=== PATIENT | male | born 1945 | race Caucasian/White ===

== ENCOUNTER 2019-01-23 15:15 | Inpatient (IN) | payer MEDICARE ==
[~2019-01-23] VITALS: Ht 182.9 cm; Wt 88.9 kg
[~2019-01-23 15:15] MED LIST: BACITO TP; CALCA400CH PO; HYDACE5 PO; METO25ER PO; Norco 5-325 Ta1 EACH PO; OXYACE5T PO; PANT40 PO; PRAM.5; PRAM.5 PO; RABE20 PO; RXOXYACE PO; TRIA80TC
[2019-01-23 16:08] LABS: BASOPHILS ABSOLUTE AUTO 0.06 K/mm3 (0.00-0.23); BASOPHILS PERCENT AUTO 0 % (0-2); EOSINOPHILS PERCENT AUTO 0 % (0-6); Hematocrit 39.4 % (37.0-53.0); Hemoglobin 13.3 g/dL (13.5-17.5); IMMATURE GRAN ABSOLUTE AUTO 0.44 K/mm3 (0.00-0.10); IMMATURE GRAN PERCENT AUTO 1 % (0-1); LYMPHOCYTES ABSOLUTE AUTO 0.77 K/mm3 (0.84-5.20); LYMPHOCYTES PERCENT AUTO 3 % (21-46); MONOCYTES ABSOLUTE AUTO 2.53 K/mm3 (0.16-1.47); MONOCYTES PERCENT AUTO 8 % (4-13); Mean Corpuscular HGB 31.4 pg (26.0-34.0); Mean Corpuscular HGB Conc 33.8 g/dL (31.5-36.5); Mean Platelet Volume 10.6 fL (9.1-12.4); NEUTROPHILS ABSOLUTE AUTO 26.71 K/mm3 (1.96-9.15); NEUTROPHILS PERCENT AUTO 88 % (41-73); Platelet Count 428 K/mm3 (150-400); RDW Coefficient Variation 13.8 % (11.7-14.2); RDW Standard Deviation 46.9 fL (35.1-46.3); Red Blood Cell Count 4.23 M/mm3 (4.30-5.90); White Blood Cell Count 30.51 K/mm3 (4.00-11.30)
[2019-01-23 16:18] LABS: Alanine Aminotransfer (ALT/SGP 52 U/L (12-78); Albumin, Blood 3.1 g/dL (3.4-5.0); Albumin/Globulin Ratio 0.6 (0.8-1.8); Alk Phos 191 U/L (50-136); Anion Gap 8 mmol/L (6-16); Aspartate Aminotrans (AST/SGOT 22 U/L (12-37); Bilirubin, Total 0.5 mg/dL (0.1-1.0); Blood Urea Nitrogen 12 mg/dL (8-24); CO2, Blood 25 mmol/L (21-32); Calcium, Blood 9.1 mg/dL (8.5-10.1); Chloride, Blood 101 mmol/L (98-108); Creatinine, Blood 0.67 mg/dL (0.60-1.20); Globulin, Blood 4.8 g/dL (2.2-4.0); Glomerular Filtration Rate >60 (60-); Glucose, Blood 134 mg/dL (70-99); Mean Corpuscular Volume 93 fL (80-100); Potassium, Blood 3.9 mmol/L (3.5-5.5); Sodium, Blood 134 mmol/L (136-145); Total Protein, Blood 7.9 g/dL (6.4-8.2)
[2019-01-23 16:22] LABS: Source, Urine Catheter
[2019-01-23 16:49] LABS: Bilirubin, Urine Neg (Neg); Blood, Urine 5+ (Neg); Glucose Qualitative, Urine Neg (Neg); Ketones, Urine 1+ (Neg); Leukocyte Esterase, Urine 3+ (Neg); Nitrite, Urine Pos (Neg); Protein, Urine 3+ (Neg); Urobilinogen, Urine NORM (Normal)
[2019-01-23 17:03] LABS: Appearance, Urine Cloudy (Clear); Color, Urine Yellow (P-Yellow)
[2019-01-23 17:05] LABS: Bacteria Mod /hpf; Squamous Epithelial Cells Rare /hpf (Few); White Blood Cells, Urine TNTC /hpf (0-5)
[2019-01-23] MEDS ORDERED: Albuterol2.5 MG/0.5 INH (18:34)
[2019-01-23] MEDS ORDERED: POTCHL20ER PO (18:35)
[2019-01-23] MEDS ORDERED: LEVE500 PO (18:35)
[2019-01-23] MEDS ORDERED: SODCHL1 PO (18:36)
[2019-01-23] MEDS ORDERED: METO25ER PO (18:36)
[2019-01-23] MEDS ORDERED: Ocuflox5 ML BOTHEYES (18:38)
[2019-01-23] MEDS ORDERED: ACULAR5 ML BOTHEYES (18:39)
[2019-01-23] MEDS ORDERED: PRAM.5 PO (18:39)
[2019-01-23] MEDS ORDERED: TAMS.4ER PO (18:40)
[2019-01-23] MEDS ORDERED: PRED FORTE5 ML BOTHEYES (18:40)
[2019-01-23 20:27] LABS: PCO2 Arterial 34.2 mmHg (35-45); pH Blood Arterial 7.47 (7.35-7.45)
--- NOTE | 2019-01-23 21:45 | NUR ---
PT TO ICU 8 FROM ED. PT PRESENTED WITH AMS, FEBRILE, AND TACHY. PER ED NURSE, PT HAS BEEN MINIMALLY RESPONSIVE TO VERBAL STIMULI BUT HAD ONE SHORT PERIOD OF SITTING UP AND SPEAKING CLEARLY. UPON ARRIVAL PT IS RESPONSIVE TO VERBAL STIMULUS BUT IS CONFUSED ON LOCATION BELIEVING HE IS AT [facility] (HE HAD A RECENT STAY FROM 12/28-01/21 D/T [facility]), PT KNEW THAT IS WAS January AND WAS ABLE TO ANSWER MOST ADMISSION QUESTIONS REGARDING MEDICAL HISTORY AND ALLERGIES BUT THEN QUICKLY FELL INTO A DEEP "SLEEP" STATE WHERE PT NEEDED PAINFUL STIMULI (STERNAL RUB) TO AROUSE. PT WOULD QUICKLY FALL BACK TO SLEEP FOLLOWING NOXIOUS STIMULI. PT'S VSS ON ADMIT. TEMP 100.5. SEE ADMISSION ASSESSMENT AND HISTORY.
[2019-01-23] MEDS ORDERED: ACET325 PO (23:33)
[2019-01-23] MEDS ORDERED: Artificial Tea1 EACH BOTHEYES (23:35)
[2019-01-23] MEDS ORDERED: Biscolax10 MG PR (23:37)
[2019-01-23] MEDS ORDERED: Colace100 MG PO (23:38)
[2019-01-23] MEDS ORDERED: LACT10SY PO (23:41)
[2019-01-23] MEDS ORDERED: Milk Of Ma400 MG/5 M PO (23:42)
[2019-01-23] MEDS ORDERED: CEPACOL SORE T1 EACH MM (23:42)
[2019-01-23] MEDS ORDERED: POLYETHYLENE GLY1 GM PO (23:43)
[2019-01-23] MEDS ORDERED: ROXICODONE5 MG PO (23:44)
[2019-01-23] MEDS ORDERED: Senna S Tablet1 EACH PO (23:45)
[2019-01-23] MEDS ORDERED: ONDA4ODT MM (23:45)
--- NOTE | 2019-01-24 03:28 | NUR ---
PT AWAKE TO VERBAL STIMULI. PT RESPONDS TO QUESTIONS BUT IS UNABLE TO FOLLOW COMMANDS. PT'S EYES REMAIN CLOSED WHILE TALKING AND CONTINUES TO BE CONFUSED ABOUT HIS LOCATION. PT ASKING IF "THAT MAN IS BACK FROM [place] WITH HIS MAIL ORDER BRIDE" AND ASKING FOR "MUSTARD PACKETS".
[2019-01-24 03:33] LABS: BASOPHILS ABSOLUTE AUTO 0.05 K/mm3 (0.00-0.23); BASOPHILS PERCENT AUTO 0 % (0-2); EOSINOPHILS ABSOLUTE AUTO 0.01 K/mm3 (0.00-0.68); EOSINOPHILS PERCENT AUTO 0 % (0-6); Hematocrit 35.3 % (37.0-53.0); Hemoglobin 11.7 g/dL (13.5-17.5); IMMATURE GRAN ABSOLUTE AUTO 0.32 K/mm3 (0.00-0.10); IMMATURE GRAN PERCENT AUTO 1 % (0-1); LYMPHOCYTES ABSOLUTE AUTO 1.51 K/mm3 (0.84-5.20); LYMPHOCYTES PERCENT AUTO 5 % (21-46); MONOCYTES ABSOLUTE AUTO 2.44 K/mm3 (0.16-1.47); MONOCYTES PERCENT AUTO 9 % (4-13); Mean Corpuscular HGB 31.8 pg (26.0-34.0); Mean Corpuscular HGB Conc 33.1 g/dL (31.5-36.5); Mean Platelet Volume 10.4 fL (9.1-12.4); NEUTROPHILS ABSOLUTE AUTO 24.03 K/mm3 (1.96-9.15); NEUTROPHILS PERCENT AUTO 85 % (41-73); Platelet Count 322 K/mm3 (150-400); RDW Standard Deviation 49.1 fL (35.1-46.3); Red Blood Cell Count 3.68 M/mm3 (4.30-5.90); White Blood Cell Count 28.36 K/mm3 (4.00-11.30)
[2019-01-24 03:34] LABS: Mean Corpuscular Volume 96 fL (80-100)
[2019-01-24 03:47] LABS: Anion Gap 6 mmol/L (6-16); Blood Urea Nitrogen 9 mg/dL (8-24); CO2, Blood 24 mmol/L (21-32); Calcium, Blood 8.7 mg/dL (8.5-10.1); Chloride, Blood 106 mmol/L (98-108); Creatinine, Blood 0.65 mg/dL (0.60-1.20); Glomerular Filtration Rate >60 (60-); Glucose, Blood 119 mg/dL (70-99); Potassium, Blood 3.9 mmol/L (3.5-5.5); Sodium, Blood 136 mmol/L (136-145)
--- NOTE | 2019-01-24 05:50 | NUR ---
SHIFT SUMMARY AT 0545 PT WOKE UP AND WAS LUCID AND AWARE OF SELF/PLACE/EVENT. PT REMEMBERS BEING AT [place] FOR HIS BRAIN SURGERY AND THAT HE WAS AT [facility] BEFORE BEING TRANSPORTED TO [facility], PT STATES THAT HE REMEMBERS "HAVING A HEADACHE" AND THAT HE PROBABLY GOT A UTI FROM HIS "FRYE AT [place]". PT REPORTS CHRONIC RIGHT SIDED BACK/HIP SCIATIC PAIN BUT DENIES ANY ADDITIONAL PAIN. HR REMAINS TACHY IN LOW 100'S. PT AFEBRILE, BP STABLE. INCONTINENT OF URINE BUT BECOMING MORE AWARE OF NEED TO URINATE AND STATES DESIRE TO TRY THE URINAL. BED ALARM ON FOR PATIENT SAFETY D/T AMS. SEE PREVIOUS SHIFT NOTES AND ASSESSMENTS. WILL REPORT TO DAYSTNFT NURSE.
--- NOTE | 2019-01-24 11:34 | NUR ---
BEGINNING OF SHIFT Assumed care at 0700 with Kandi MANUEL. Report received from Jean Pierre MANUEL. Pt on 1 LPM NC. Pt in bed, alert and oriented. Able to state correct month and year. Needs reminder of current day and whether it is morning or evening. Pt on 1 LPM NC. Titrated to room air; SpO2 90% or greater. Lungs clear, dim in bases. Sinus rhtyhm per monitor. Some incontinence of urine. Pt requests bed meza and urinal appropriately, however attends are saturated. No edema noted. Dr Villegas in to see patient. Etta for PCU status per Dr Villegas.
--- NOTE | 2019-01-24 18:45 | NUR ---
SHIFT SUMMARY No acute changes to shift assessment. Pt has remained A&O x 4 for entire shift. Pt OOB to commode with two person min assist with physical therapy. Pt remained on room air for enitre shift. No events per monitor. Pt assigned to room PCU 10. Telephone report given to Allie MANUEL. Pt transferred via bed accompanied by Anatoliy MANUEL. Pt requested this RN called son, Loki [phone] and inform him of new room assignment. Pt's son, Loki, stated he was unaware of the pt's hospitalization. Update given to pt's son. Son stated that pt has paperwork with [place] designating medical power of commercial attorney. [facility] contacted [facility]UEL; paperwork to be faxed to PCU.
[2019-01-24 19:06] LABS: U Amphetamine Screen Not Detected; U Barbituate Screen Not Detected; U Benzodiazapine Screen Not Detected; U Buprenorphine Screen Not Detected; U Cannabinoids Screen Not Detected; U Cocaine Screen Not Detected; U Methadone Screen Not Detected; U Methamphetamine Screen Not Detected; U Opiates Screen Not Detected; U Oxycodone Screen Not Detected; U Phencyclidine Screen Not Detected; U Propoxyphene Screen Not Detected
--- NOTE | 2019-01-24 20:11 | NUR ---
Pt arrived to PCU 10 at 1900. Pt alert and oriented but slow to respond and tells a disjointed history of events. Pt with suction at bedside, pt self suctions. Lungs clear, RA. Breathing easy and unlabored. VSS. Bed alarm in place. MAR Villalpando attempting to place new IV at this time. Will continue to monitor.
[2019-01-25 05:32] LABS: BASOPHILS ABSOLUTE AUTO 0.05 K/mm3 (0.00-0.23); BASOPHILS PERCENT AUTO 0 % (0-2); EOSINOPHILS ABSOLUTE AUTO 0.12 K/mm3 (0.00-0.68); EOSINOPHILS PERCENT AUTO 1 % (0-6); Hematocrit 32.7 % (37.0-53.0); Hemoglobin 10.8 g/dL (13.5-17.5); IMMATURE GRAN ABSOLUTE AUTO 0.09 K/mm3 (0.00-0.10); IMMATURE GRAN PERCENT AUTO 1 % (0-1); LYMPHOCYTES ABSOLUTE AUTO 1.48 K/mm3 (0.84-5.20); LYMPHOCYTES PERCENT AUTO 9 % (21-46); MONOCYTES ABSOLUTE AUTO 1.22 K/mm3 (0.16-1.47); MONOCYTES PERCENT AUTO 7 % (4-13); Mean Corpuscular HGB 31.3 pg (26.0-34.0); Mean Corpuscular Volume 95 fL (80-100); Mean Platelet Volume 10.6 fL (9.1-12.4); NEUTROPHILS ABSOLUTE AUTO 14.01 K/mm3 (1.96-9.15); NEUTROPHILS PERCENT AUTO 83 % (41-73); Platelet Count 296 K/mm3 (150-400); RDW Standard Deviation 48.6 fL (35.1-46.3); Red Blood Cell Count 3.45 M/mm3 (4.30-5.90); White Blood Cell Count 16.97 K/mm3 (4.00-11.30)
[2019-01-25 05:52] LABS: Albumin, Blood 2.2 g/dL (3.4-5.0); Anion Gap 5 mmol/L (6-16); Blood Urea Nitrogen 8 mg/dL (8-24); Bun/Creatinine Ratio 13.3 (12.0-20.0); CO2, Blood 27 mmol/L (21-32); Calcium, Blood 8.5 mg/dL (8.5-10.1); Chloride, Blood 103 mmol/L (98-108); Glomerular Filtration Rate >60 (60-); Glucose, Blood 107 mg/dL (70-99); Phosphorus, Blood 2.8 mg/dL (2.5-4.9); Potassium, Blood 3.6 mmol/L (3.5-5.5); Sodium, Blood 135 mmol/L (136-145); Vancomycin, Trough 12.3 ug/mL (5.0-10.0)
--- NOTE | 2019-01-25 06:30 | NUR ---
Shift Summary No acute changes this shift. Pt with VSS. No apparent sign of distress. No changes in mentation or alteration of orientation. Pt responds appropriately, follows commands. Pt on RA, breathing easy and unlabored, frequent hiccups that causes the pt stated discomfort. Pt is incont of urine and stool, saturated attends twice this shift. currently, attends in place and dry. ABX tx continued this shift. Pt calls appropriately. Will continue to monitor.
--- NOTE | 2019-01-25 12:24 | NUR ---
FACE SHEET TALKLED, BY PHONME, WITH PT SON AND DAUGHTER ALEXIS AND CHARLIE . RECEIVED CORRECTED INFORMATION ON POWER OF UNIVERSITY TUTOR AND PHONE NUMBERS. HAVE CALLED ADMITTING TO HAVE THE FACE SHEET CORRECTED AT 1215. THEY ARE GOING TO CALL ME BACK. CONTINUE POT.
--- NOTE | 2019-01-25 16:40 | NUR ---
SUTURE REMOVAL CALLED DR GARCIA TO TALK ABOUT REMOVING CRANIAL SUTURES. DR GARCIA OK'D REMOVEL. TALKED WITH PT. CLEANED SUTURE SITES WITH CHLOROHEXADINE BEFORE REMOVING. SUTURES WERE VERY SMALL AND TIGHT TO THE SKIN. UNABLE TO USE SUTURE REMOVEL SISSORS. HAD TO US A SMALL SCALPL. EACH SITE MEG CD&I. CONTINUE POT.
--- NOTE | 2019-01-25 16:46 | NUR ---
SHIFT SUMMARY PT ALERT. HE IS CONVICED THAT HE IS IN HIS BEDROOM. HE CAN'T MAKE THE ASSOCIATION BETWEEN THE NURSES AND NOT BEING HOME. SR. VSS. REMOVED SUTURES FROM CRANIOTOMY SITE. TURNING WHEN HE WILL LET US. PT ABLE TO HELP SOME IF HE WANTS TOO. PT HAS BEEN LARGELY INCONTINENT OF BLADDER TODAY. TALKED WITH FAMILY ABOUT PT CARE AND PLAN. MANAGED TO GET THE FACE SHEET CHANGES DONE THAT HIS SON/DAUGHTER REQUESTED. CONTINUE POT.
--- NOTE | 2019-01-25 21:48 | NUR ---
Assumed care of pt at approx 1910, pt presents layng in bed, curled to one side, moaning and restless. When this RN approached pt, he states "why are you in my house? where is my daughter?" This RN attempted to reorient pt, pt responds "all you people keep trying to convince me that i'm still in the hospital. this is my house." Pt calm and non aggressive, but defensive. This RN attempts to create an environment that is comfortable to pt, while continuing to reorient pt. Pt open to redirection and reorientation, but forgets quickly and thus requires frequent redirections. This is a change from yesterday night. Pt able to swallow medications by mouth with applesauce. VSS, see shift assessment for detailed systems assessment. pt able to move self in bed, attends in place and clean/dry at this time. Will continue to monitor.
[2019-01-26 03:51] LABS: BASOPHILS ABSOLUTE AUTO 0.04 K/mm3 (0.00-0.23); BASOPHILS PERCENT AUTO 0 % (0-2); EOSINOPHILS ABSOLUTE AUTO 0.05 K/mm3 (0.00-0.68); EOSINOPHILS PERCENT AUTO 1 % (0-6); Hematocrit 35.9 % (37.0-53.0); Hemoglobin 12.1 g/dL (13.5-17.5); IMMATURE GRAN ABSOLUTE AUTO 0.07 K/mm3 (0.00-0.10); IMMATURE GRAN PERCENT AUTO 1 % (0-1); LYMPHOCYTES ABSOLUTE AUTO 1.24 K/mm3 (0.84-5.20); LYMPHOCYTES PERCENT AUTO 13 % (21-46); MONOCYTES ABSOLUTE AUTO 0.72 K/mm3 (0.16-1.47); MONOCYTES PERCENT AUTO 7 % (4-13); Mean Corpuscular HGB 31.4 pg (26.0-34.0); Mean Corpuscular HGB Conc 33.7 g/dL (31.5-36.5); Mean Corpuscular Volume 93 fL (80-100); Mean Platelet Volume 10.5 fL (9.1-12.4); NEUTROPHILS ABSOLUTE AUTO 7.64 K/mm3 (1.96-9.15); NEUTROPHILS PERCENT AUTO 78 % (41-73); Platelet Count 307 K/mm3 (150-400); RDW Coefficient Variation 13.6 % (11.7-14.2); RDW Standard Deviation 46.3 fL (35.1-46.3); Red Blood Cell Count 3.85 M/mm3 (4.30-5.90); White Blood Cell Count 9.76 K/mm3 (4.00-11.30)
--- NOTE | 2019-01-26 06:33 | NUR ---
Shift Summary Pt remains disoriented this shift. Pt continues to believe that he is at home and that we are in his house. When pt is redirected, he becomes frustrated by saying " you are all trying to convince me that I am not home". Otherwise, VSS. No events on tele. Pt remains with hiccups. Breathing is easy and unlabored, maintaining saturations on RA as at baseline. Pt continues to completely saturate attends. Attends in place and dry at this time. Pt attempts to tell staff when he needs to void, but when staff comes, he has already voided. Pt is currently contact with splash precautions. Pt swallows medications whole, one at a time, with apple sauce. No further changes from initial shift assessment. Will continue to monitor.
--- NOTE | 2019-01-26 09:47 | NUR ---
AM NOTE PT AWAKE AND MORE ALERT. CONVERSING MORE WITH STAFF. STILL THINKS HE'S AT HOME AND WE ARE IN HIS BED ROOM. NO FURTHER DOG HALLUCINATIONS THIS MORNING. PT HELPING TO TURN SELF, WEAKLY. INCONTINENT OF URINE. SATURATING AN ATTENDS WITH A LINER. PT DENIED DISCOMFORT. REFUSED BREAKFAST. CONTINUE POT.
--- NOTE | 2019-01-27 01:44 | NUR ---
Assumed care of pt at approx 1900. VSS. Pt resting in bed. Breathing easy and unlabored. Pt oriented this shift to self, place, time, event. Pt able to tell this RN of the events leading to this hospital stay which is an improvement from previous shift. Pt swallows pills whole in applesauce. Pt on RA, follows commands, makes needs known. Pt able to reposition self in bed. Call light in reach. Pt remains incontinent of bladder. Pt with completely saturated attends this shift. New attends in place now, CDI. No skin irritation noted. Continueing to monitor needs for attends change. See shift assessment for detailed assessment. Will continue monitoring
[2019-01-27 03:37] LABS: BASOPHILS ABSOLUTE AUTO 0.05 K/mm3 (0.00-0.23); BASOPHILS PERCENT AUTO 1 % (0-2); EOSINOPHILS ABSOLUTE AUTO 0.08 K/mm3 (0.00-0.68); EOSINOPHILS PERCENT AUTO 1 % (0-6); Hematocrit 38.2 % (37.0-53.0); Hemoglobin 12.9 g/dL (13.5-17.5); IMMATURE GRAN PERCENT AUTO 1 % (0-1); LYMPHOCYTES ABSOLUTE AUTO 1.62 K/mm3 (0.84-5.20); LYMPHOCYTES PERCENT AUTO 22 % (21-46); MONOCYTES ABSOLUTE AUTO 0.89 K/mm3 (0.16-1.47); MONOCYTES PERCENT AUTO 12 % (4-13); Mean Corpuscular HGB 31.2 pg (26.0-34.0); Mean Corpuscular HGB Conc 33.8 g/dL (31.5-36.5); Mean Corpuscular Volume 92 fL (80-100); Mean Platelet Volume 10.3 fL (9.1-12.4); NEUTROPHILS ABSOLUTE AUTO 4.77 K/mm3 (1.96-9.15); NEUTROPHILS PERCENT AUTO 63 % (41-73); Platelet Count 342 K/mm3 (150-400); RDW Coefficient Variation 13.6 % (11.7-14.2); RDW Standard Deviation 45.9 fL (35.1-46.3); Red Blood Cell Count 4.14 M/mm3 (4.30-5.90); White Blood Cell Count 7.51 K/mm3 (4.00-11.30)
[2019-01-27 03:57] LABS: Anion Gap 4 mmol/L (6-16); Blood Urea Nitrogen 7 mg/dL (8-24); Bun/Creatinine Ratio 12.1 (12.0-20.0); CO2, Blood 29 mmol/L (21-32); Calcium, Blood 8.8 mg/dL (8.5-10.1); Chloride, Blood 103 mmol/L (98-108); Creatinine, Blood 0.58 mg/dL (0.60-1.20); Glomerular Filtration Rate >60 (60-); Glucose, Blood 103 mg/dL (70-99); Potassium, Blood 3.8 mmol/L (3.5-5.5); Sodium, Blood 136 mmol/L (136-145)
--- NOTE | 2019-01-27 06:02 | NUR ---
Shift Summary No acute changes this shift. Pt remains alert and oriented to person, place, time, event. Breathing remeains easy and unlabored, RA. Fewer events of hiccup attacks this shift. Pt slept throughout majority of this shift. ABX infused per orders. Pt remains incont of urine, pt completely saturates attends with each void. Zena care provided to pt this shift. No changes from intial shift assessment. Pt with call light in reach, calls out instead of using call light to make needs known. Will continue to monitor and update until shift change.
--- NOTE | 2019-01-27 08:00 | NUR ---
pt laying in bed with eyes closed on his side. he woke easily and wants a urineal, he already went in attends, but placed urinal for him with no results, he was changed and repositioned in bed, he wanted breakfast, he is eating ok, but did not swallow po meds very well, gave with applesauce and still needed a lot of water to get them down, maybe crush. lungs are clear dim in bases, is on r/a, resp even and unlabored, no cough noted, hrirr, tele in place running afib per monitor, see strip, no edema noted, pppd+1, cap refill <3sec, vs stable, afebrile, iv site is puffy, states it hurts with flushing and cannot draw blood from it. asked charge to place power glide as needs 6 days of iv abx, btx4, abd flat soft nontender, incont of urine, attends in place, skin c/w/d, serafin ramírez, call light in reach.
--- NOTE | 2019-01-27 19:16 | NUR ---
pt has been discharged back to [facility], he left via [facility] with transport in attendence. power glide was placed this am, this was left in for 6 more days of abx. he had a h/a this afternoon, but a oxycodone helped alot. no further changes this shift.
--- NOTE | 2019-01-27 19:26 | NUR ---
report given to Ansley at [facility].
== END 2019-01-27 19:00 | DRG 871 ==
LOC: ER 15:15 → PCU 18:16 → ICUE 18:16 → ERHOLD 18:16 → ICUE 21:30 → PCU 21:38
PROVIDERS: Emergency Medicine; Hospitalist; ADMIT Family Medicine
DX: A41.51 Sepsis due to Escherichia coli [E. coli] (principal); G92 Toxic encephalopathy; I63.9 Cerebral infarction, unspecified; N39.0 Urinary tract infection, site not specified; E87.1 Hypo-osmolality and hyponatremia; R65.20 Severe sepsis without septic shock; K21.9 Gastro-esophageal reflux disease without esophagitis; G25.81 Restless legs syndrome; D47.3 Essential (hemorrhagic) thrombocythemia; F43.10 Post-traumatic stress disorder, unspecified; I10 Essential (primary) hypertension; Z66 Do not resuscitate; M19.90 Unspecified osteoarthritis, unspecified site; Z86.73 Personal history of transient ischemic attack (TIA), and cerebral infarction without residual deficits; Z88.0 Allergy status to penicillin; Z79.899 Other long term (current) drug therapy
CPT/HCPCS: 36415; 36600; 70450; 71046; 76770; 80048; 80053; 80069; 80202; 81001; 82803; 83605; 85025; 87040; 87077; 87086; 87186; 93005; 93010; 96365; 96375; 97110; 97162; 97166; 97530; 97535; 99285-25; C9113; J0696; J1953; J1956; J2185; J2405; J3370; J7030; J7050; J7120

== ENCOUNTER 2019-04-22 16:07 | Emergency (ER) | payer OTHER, MEDICARE ==
[~2019-04-22] VITALS: Ht 167.6 cm; Wt 82.5 kg
[~2019-04-22 16:07] MED LIST changes: +ACET325 PO; +ACULAR5 ML BOTHEYES; +Albuterol2.5 MG/0.5 INH; +Artificial Tea1 EACH BOTHEYES; +Biscolax10 MG PR; +CEPACOL SORE T1 EACH MM; +Colace100 MG PO; +LACT10SY PO; +LEVE500 PO; +Milk Of Ma400 MG/5 M PO; +ONDA4ODT MM; +Ocuflox5 ML BOTHEYES; +POLYETHYLENE GLY1 GM PO; +POTCHL20ER PO; +PRED FORTE5 ML BOTHEYES; +ROXICODONE5 MG PO; +SODCHL1 PO; +Senna S Tablet1 EACH PO; +TAMS.4ER PO
[2019-04-22] MEDS ORDERED: THERA-D2000 UNIT PO (16:27)
[2019-04-22] MEDS ORDERED: METO25 PO (16:28)
[2019-04-22] MEDS ORDERED: OXYC5 PO (16:28)
[2019-04-22] MEDS ORDERED: Hydrochloroth12.5 MG PO (16:28)
[2019-04-22] MEDS ORDERED: PANT40 PO (16:29)
[2019-04-22] MEDS ORDERED: Ropinirole HCl1 MG PO (16:32)
[2019-04-22] MEDS ORDERED: MIRALAX17 GM PO (16:32)
[2019-04-22] MEDS ORDERED: SERT25 PO (16:33)
[2019-04-22] MEDS ORDERED: Senna Plus Tab1 EACH PO (16:33)
== END 2019-04-22 18:09 | disposition home or self-care (01) ==
LOC: ER 16:07
DX: R51 Headache (principal); Z88.0 Allergy status to penicillin; Z88.8 Allergy status to other drugs, medicaments and biological substances; Z79.899 Other long term (current) drug therapy; Z79.891 Long term (current) use of opiate analgesic; Z87.891 Personal history of nicotine dependence
CPT/HCPCS: 70450; 99284-25